=== PATIENT | male | born 1950 | race Two or more races ===

== ENCOUNTER → 2024-06-27 | Outpatient (CLI) | payer MEDICARE, MEDICAID, SELFPAY ==
--- NOTE | 2024-06-27 09:00 | XR_ITS ---
Examination: Abdomen AP single view Technique: AP portable supine abdomen, single view Exam date and time: June 27, 2024 0917 hours INDICATIONS: Fecal impaction diagnosis FINDINGS: Large amounts of stool in the transverse and descending colon No obstruction IMPRESSION: Large amounts of stool in the colon
== END | disposition home or self-care (01) ==
PROVIDERS: Referring Provider Specialist; Visit Provider Specialist
DX: K59.00 Constipation, unspecified (principal)
CPT/HCPCS: 74018

== ENCOUNTER → 2024-06-28 | Outpatient (CLI) | payer MEDICARE, MEDICAID, SELFPAY ==
--- NOTE | 2024-06-28 09:15 | XR_ITS ---
Examination: Gastrografin enema KUB Fluoroscopy 14 spot fluoroscopic films of the colon Exam date and time: June 28, 2024 0907 hours INDICATIONS: Diagnosis impaction TECHNIQUE AND FINDINGS: Oyster Picker AP supine abdomen demonstrates significant stool throughout the colon Colon is filled under fluoroscopic guidance to the cecum No constricting colonic lesion No colonic diverticulosis No significant evacuation on the postevacuation film No rectal or other ulcerations IMPRESSION: No colonic lesion noted
== END | disposition home or self-care (01) ==
PROVIDERS: PCP Specialist; Referring Provider Specialist; Visit Provider Specialist
DX: K59.09 Other constipation (principal)
CPT/HCPCS: 74270; Q9963

== ENCOUNTER 2024-09-21 09:23 | Outpatient (AMB) | payer MEDICARE, MEDICAID, SELFPAY ==
--- NOTE | 2024-09-21 09:24 | PD.RESCLINIC ---
Vital Signs 09/21/24 09:37 Height 1.68 m Height Method Stated Weight 60.895 kg Weight Measurement Method Standing Scale BMI 21.5 BP 102/62 Blood Pressure Source Automatic Cuff Blood Pressure Location Right Upper Arm Position Sitting Respiration 18 Pulse 82 Pulse Source Monitor Temp 98.3 F Temp Source Temporal Artery Scan Pulse Oximetry (%) 97 Oxygen Delivery Method Room Air Allergies/Meds Allergies & Medications Allergies No Known Allergies Allergy (Verified 09/21/24 09:38) Medication Reconciliation lancets 23 gauge (Accu-Chek Safe-T-Pro) #200 ea 10/27/23 [Rx Confirmed 09/21/24] metformin 500 mg tablet 500 mg PO BIDWMEAL #60 tabs 10/27/23 [Rx Confirmed 09/21/24] pen needle, diabetic 29 gauge x 1/2 (1st Tier Unifine Pentips Plus) #2 ea 10/27/23 [Rx Confirmed 09/21/24] docusate sodium 100 mg capsule 100 mg PO QDAY PRN constipation #30 caps 12/14/23 [Rx Confirmed 09/21/24] empagliflozin 10 mg tablet (Jardiance) 10 mg PO QAM Diabetes #30 tabs 12/14/23 [Rx Confirmed 09/21/24] gabapentin 300 mg capsule 300 mg PO HS neuropathy 30 days #30 caps 12/14/23 [Rx Confirmed 09/21/24] sitagliptin phosphate 100 mg tablet (Januvia) 100 mg PO QDAY #30 tabs 12/14/23 [Rx Confirmed 09/21/24] MA Intake Visit Data Collection New Patient or Established: Established Patient (seen at [facility] within 3 years) Seen by Clinical Staff ONLY (RN/MA): No Pain Present Currently: No Pain scale:: 0 Pain Scale Used: Pulido-Winston/Numerical Ball Machine Operator Required: No PCP or OBGYN visit in last 3 months: No Hx Now: No Do You Feel Safe at Home: Yes Authorities Contacted: N/A Smoking Status Smoking Status: Current every day smoker Cessation Counseling Provided: ANA was advised that quitting smoking is the single most important factor to protect the health of themselves and their family. Discussed the benefits of quitting smoking with patient. Encouraged patient to quit smoking and provided Cessation assistance materials and resources. Tobacco Use: Cigarette Years smoked: 50 Are you interested in quitting?: No Immunization / Flu Flu Vaccine in the Last 12 Months: No Flu Vaccine Exclusion Criteria: Refused by Patient Past Medical History Past Medical History NEUROLOGIC: Negative Neurological Disorders, Cerebrovascular Accident, Transient Ischemic Attacks (TIA), Dementia, Alzheimer's Disease, Parkinson's Disease, Brain Tumor, Meningitis, Seizures, Epilepsy, Multiple Sclerosis, Cerebral Palsy, Amyotrophic Lateral Sclerosis (ALS/Clarisa Gehrig's), Guillain-Pioneer Syndrome, Spina Bifida, Paralysis, Peripheral Neuropathy, Jara's Palsy, Subdural Hematoma, Migraine, Head Trauma, Spinal Cord Injury or Traumatic Brain Injury CARDIAC: Positive Cardiac Disorders, Peripheral Vascular Disease and Hypotension; Negative Myocardial Infarction, Cardiac Arrhythmia, Atrial Fibrillation, Angina, Heart Murmur, Coronary Artery Disease, Atherosclerotic Heart Disease, Hypercholesterolemia, Aneurysm, Congestive Heart Failure, Congenital Heart Disease, Valvular Heart Disease, Rheumatic Fever, Cardiomyopathy, Edema, Pericarditis, Cellulitis, Deep Vein Thrombosis, Hypertension or Varicose Veins RESPIRATORY: Negative Chronic Obstructive Pulmonary Disease (COPD), Asthma, Bronchitis, Emphysema, Pneumonia, Pulmonary Fibrosis, Cystic Fibrosis, Tuberculosis, Pulmonary Embolism, Pulmonary Edema or Sleep Apnea GASTROINTESTINAL: Negative Gastrointestinal Disorders, Hepatitis, Cirrhosis, Pancreatitis, Celiac Disease, Gall Bladder Disease, Gastrointestinal Bleed, Esophageal Varices, Poon's Esophagus, Colitis, Ulcerative Colitis, Diverticulitis, Diverticulosis, Ulcer, Colorectal Cancer, Irritable Bowel, Crohn's Disease, Obstructive Bowel, Hiatal Hernia, Hemorrhoids, Gastroesophageal Reflux Disease or Obesity GENITOURINARY: Positive Renal Disease; Negative Genitourinary Disorders, Kidney Stones, Polycystic Kidney Disease, Neurogenic Bladder, Inguinal Hernia, Dialysis, Prostate Cancer or Benign Prostatic Hyperplasia REPRODUCTIVE: Negative Breast Cancer (n/a), Fibroids, Genital Herpes, Gonorrhea, Syphilis or Testicular Cancer MUSCULOSKELETAL: Negative Muscular Dystrophy, Myasthenia Gravis, Marfan's Syndrome, Bone Cancer, Arthritis, Rheumatoid Arthritis, Osteoporosis, Degenerative Disk Disease, Gout, Scoliosis, Carpal Tunnel Syndrome, Fibromyalgia, Fractures, Degenerative Joint Disease, Osteomyelitis or Poliovirus ENT: Negative Cataracts, Glaucoma, Blind, Retinal Detachment, Macular Degeneration, Ear Infection, Deafness, Head Trauma or Eye Prosthesis ENDOCRINE: Positive Endocrine Disorders and Diabetes Mellitus Type 2; Negative Diabetes Mellitus Type 1, Hypoglycemia, [employer] [employer]'s Syndrome, [place]'s Disease, Hyperthyroidism, Hypothyroidism, Parathyroid Disease, Pituitary Disease, Systemic Lupus Erythematosus, Syndrome of Inappropriate Antidiuretic Hormone (SIADH), Adrenal Disease or Graves' Disease HEMATOLOGIC: Negative Blood Disorders, Anemia, Leukemia, Hemophilia, Thalassemia, Sickle Cell Disease or Clotting Problems PSYCHO/SOCIAL: Negative Psychiatric Problems, Schizophrenia, Recreational Drug Use, Bipolar Disorder, Depression, Anxiety, Behavior Problems, Self-Mutilation, Attention Deficit Disorder, Attention Deficit Hyperactivity Disorder, Depression, Post Traumatic Stress Disorder or Eating Disorder OTHER HISTORY: Negative Hospitalization, Down Syndrome, Autism, Developmental Delay, Shingles, Falls, Blood Transfusions, Blood Transfusion Reaction, Anesthesia Reactions, Organ Transplant, Chemotherapy, Radiation Therapy, Hyperbaric Therapy, MRSA, VRSA, Vancomycin-Resistant Enterococci, Human Immunodeficiency Virus (HIV), Chicken Pox, Measles, Mumps, Rubella ([place] Measles), Pertussis, Clostridium Difficile, Cancer, Breast Cancer (n/a), Colorectal Cancer, Lung Cancer, Prostate Cancer or Testicular Cancer Family History FAMILY HISTORY: Negative Family Psychiatric Problems, Family Respiratory Disorders, Family Cardiac Disorders, Family Gastrointestinal Problems, Family Cancer, Family Surgery or Family Anesthesia Reaction Surgical History SURGICAL: Negative Cardiac Surgery, Open Heart Surgery, Coronary Artery Bypass Graft, Valve Replacement, Vascular Surgery, Coronary Stent, Cardiac Catheterization, Pacemaker, Angiogram, Auto Implanted Cardiovert Defib, Carotid Endarterectomy, Endocrine Surgery, Thyroidectomy, Ear Surgery, Tympanostomy Tube, Eye Surgery, Nose Surgery, Oral Surgery, Tonsillectomy, Adenoidectomy, Cochlear Implant, Corneal Transplant, Throat Surgery, Abdominal Surgery, Tracheostomy, Gastric Bypass Surgery, Gastrostomy, Bowel Surgery, Nephrectomy, Transurethral Resection, Joint Replacement, Amputation, Open Reduction Internal Fixation, Arthroscopy, Neurologic Surgery, Mastectomy, Lumpectomy, Hysterectomy, Tubal Ligation, Section, Vasectomy or Organ Transplant Social History SMOKING STATUS: Smoking status: Current every day smoker PACK YEARS: Pack-Years: 60 ALCOHOL: Alcohol Intake: Never HOUSING: Housing: House LIVES WITH: Lives With: Alone Patient Portal Yamini Social History Living Situation History Housing: House Tobacco History Smoking Status: Current every day smoker Packs per Day: 1 Pack-Years: 60 Alcohol History Alcohol Intake: Never Domestic Abuse History Do You Feel Safe at Home: Yes Review of Systems Report any current symptoms Only answer those that you have currently: Past Medical History Past Medical History Have you ever been diagnosed with any of the following: Neurological Problems Cerebrovascular Accident (CVA): No Transient Ischemic Attacks (TIA): No Dementia: No Alzheimer's Disease: No Parkinson's Disease: No Brain Tumor: No Meningitis: No Seizures: No Epilepsy: No Multiple Sclerosis: No Cerebral Palsy: No Amyotrophic Lateral Sclerosis (ALS/Clarisa Gehrig's): No Guillain-Pioneer Syndrome: No Spina Bifida: No Paralysis: No Peripheral Neuropathy: No Jara's Palsy: No Subdural Hematoma: No Migraine: No Head Trauma: No Spinal Cord Injury: No Traumatic Brain Injury: No Cardiology Problems Myocardial Infarction: No Cardiac Arrhythmia: No Atrial Fibrillation: No Angina: No Heart Murmur: No Coronary Artery Disease: No Atherosclerotic Heart Disease: No Peripheral Vascular Disease: Yes Hypercholesterolemia: No Aneurysm: No Congestive Heart Failure: No Congenital Heart Disease: No Valvular Heart Disease: No Rheumatic Fever: No Cardiomyopathy: No Edema: No Pericarditis: No Cellulitis: No Deep Vein Thrombosis: No Hypertension: No Hypotension: Yes Varicose Veins: No Respiratory Problems Chronic Obstructive Pulmonary Disease (COPD): No Asthma: No Bronchitis: No Emphysema: No Pneumonia: No Pulmonary Fibrosis: No Tuberculosis: No Pulmonary Embolism: No Pulmonary Edema: No Sleep Apnea: No Stomache/Intestinal Problems Hepatitis: No Cirrhosis: No Pancreatitis: No Celiac Disease: No Gall Bladder Disease: No Gastrointestinal Bleed: No Esophageal Varices: No Poon's Esophagus: No Colitis: No Ulcerative Colitis: No Diverticulitis: No Diverticulosis: No Ulcer: No Colorectal Cancer: No Irritable Bowel: No Crohn's Disease: No Obstructive Bowel: No Hiatal Hernia: No Hemorrhoids: No Gastroesophageal Reflux Disease: No Obesity: No Genital/Urinary Problems Renal Disease: Yes Kidney Stones: No Polycystic Kidney Disease: No Neurogenic Bladder: No Inguinal Hernia: No Dialysis: No Prostate Cancer: No Benign Prostatic Hyperplasia: No Reproductive Problems Breast Cancer: No (n/a) Fibroids: No Genital Herpes: No Gonorrhea: No Syphilis: No Testicular Cancer: No Musculoskeletal Problems Muscular Dystrophy: No Myasthenia Gravis: No Marfan's Syndrome: No Bone Cancer: No Arthritis: No Rheumatoid Arthritis: No Osteoporosis: No Degenerative Disk Disease: No Gout: No Scoliosis: No Carpal Tunnel Syndrome: No Fibromyalgia: No Fractures: No Degenerative Joint Disease: No Osteomyelitis: No Poliovirus: No Head,Eye,Nose,Throat Problems Cataracts: No Glaucoma: No Blind: No Retinal Detachment: No Macular Degeneration: No Chronic Ear Infections: No Deafness: No Eye Prosthesis: No Endocrine Problems Diabetes Mellitus Type 1: No Diabetes Mellitus Type 2: Yes Hypoglycemia: No [employer] [employer]'s Syndrome: No Adams's Disease: No Hyperthyroidism: No Hypothyroidism: No Parathyroid Disease: No Pituitary Disease: No Systemic Lupus Erythematosus: No Syndrome of Inappropriate Antidiuretic Hormone: No Adrenal Disease: No Graves' Disease: No Blood Problems Anemia: No Leukemia: No Hemophilia: No Thalassemia: No Sickle Cell Disease: No Clotting Problems: No Psychologic Problems Schizophrenia: No Recreational Drug Use: No Bipolar Disorder: No Depression: No Anxiety: No Behavior Problems: No Self-Mutilation: No Attention Deficit Disorder: No Attention Deficit Hyperactivity Disorder: No Depression: No Post Traumatic Stress Disorder: No Eating Disorder: No Other Problems Hospitalization: No Down Syndrome: No Autism: No Developmental Delay: No Shingles: No Falls: No Blood Transfusions: No Blood Transfusion Reaction: No Anesthesia Reactions: No Organ Transplant: No Chemotherapy: No Radiation Therapy: No Hyperbaric Therapy: No MRSA: No VRSA: No Vancomycin-Resistant Enterococci: No Human Immunodeficiency Virus (HIV): No Chicken Pox: No Measles: No Mumps: No Rubella ([place]an Measles): No Pertussis: No Clostridium Difficile: No Cancer: No Lung Cancer: No Surgical History Carotid Endarterectomy: No Coronary Artery Bypass Graft: No Valve Replacement: No Pacemaker: No Thyroidectomy: No History of Present Illness HPI Narrative Patient is a 73 year old male with history of peripheral neuropathy, T2 IDDM, and recurrent right foot soft tissue infections, who presented to the ED with right second toe gangrene, was admitted for further evaluation and management of right second toe gangrene recently and was discharged for vascular referral. Patient has seen Dr. Brennan the vascular surgeon and he placed a stent for the patient according to his daughter Tamia. She also informed that he has scheduled an appointment with the general surgeon Dr. Guzman on Wednesday, 01 September 2023. She informed that there is a home health nurse that comes every day to check on his wound and she informed them that the wound looks clean and they have to wait just for the appointment, She also mentioned that the patient is taking his meds as instructed. I informed the daughter Tamia to book an appointment follow-up with me after her appointment with Dr. Guzman to further coordinate patient's care if surgical intervention was required. 10/27/23 Phone visit, completed with the help of patient's son in law , Chadd, apparently pt's daughter Tamia is no longer with them and Chadd will be taking over care and wishes to be the person to contact in case of emergencies, Questions and concerns were answered, primary reason for consult was medication refills, and that patient wasnt sure what medication to continue, he had a recent amputation follwoing gangrene and discharged from hospital on Jardiance and metformin, which are refilled. reported good compliance and tolerace to medications. of note, i did notice that the pt had recently had vascular surgery appointment with stent placement by dr. Brennan, but the patient is unsure if he needs to followup or needs to take any medications. I urged them to reach out to Dr Brennan's office for followup and confirm if he was precribed any medications pretaining to peripheral vascular disease as to prevent future gangrenes. 02/09/24: Patient here today regarding b/l muscle wasting of snuff box. Patient is IDDM2 with complications of multiple amputations. Currently patient on fast acting insuline with meals. Last A1c 7.9, patient underwent amputation of right below knee by Dr. Guzman on 09/09/23. Since then patient has been having home wound care every x2 weeks. Physical exam of hands show muscle wasting of snuff box, strength intact b/l. No other concerns today. Encouraged patient to perform eligibility analyst exercise. 09/21/2024: Patient seen in office today with chief complaint of increased pain at site of right BKA associated with prosthetic use. Patient states he has had pain for some time , however has been getting progressively worse, significantly associated with walking with prosthetic. On exam, patient noted tenderness to palpation on anterior hinojosa, had area of thickened skin without breakdown at site of BKA. Will reach out to hospital regarding who provided prosthetic, plan for evaluation for refitting. Water Softener Installer strength assessed, patient reports subjective improvement with hand exercises. Review of Systems Review of Systems Systems Reviewed: All systems reviewed, normal except as documented Objective/Exam Narrative Physical exam: Constitutional: well-developed, well-nourished, in no acute distress, lying in bed HEENT: NCAT, EOMI, reactive round pupils b/l, patent nares b/l, moist mucous membranes Lung: CTAB, no wheezing, no rhonchi Heart: Regular S1S2, no murmurs, gallops, or rubs Abdomen: Soft, non-distended, non-tender, bowel sounds present throughout Extremities: Right below knee amputation with prosthetic noted. Tenderness to anterior right hinojosa, thickened skin at site of BKA. Neurologic: No focal sensory or motor deficits noted, AOx3, appropriate affect Skin: Warm, dry, no lesions or rashes noted NETWORK CONTROL OPERATOR: Right hand 60, Thumb 13, 1st 10, 2nd 10, 3rd 9, 4th 2. Left hand 50, thumb 10, 1st 10, 2nd 10, 3rd 8, 4th 2. Assessment & Plan Diagnosis / Problem List (1) Other complications of amputation stump: Status: Acute Assessment & Plan: Patient seen for complaint of pain at site of right BKA. Appears to be associated with prosthetic use, tenderness noted at anterior hinojosa. Likely due to poor fit, possibly secondary to muscular atrophy. Surgery performed by Dr. Guzman at [facility]. Plan: - Follow-up with [facility] regarding who provide the prosthetic - Will reach out to see if the company to provide the prosthetic can evaluate for potential refit - Use Tylenol as needed for pain Additional Assessment Plan of care discussed with Dr. Perez. Khanh Tavera MD PGY-1 Advanced Care Planning Advance care planning discussed with:: patient and child Office Procedures [facility] Level of Care Nursing/Assessment Patient Status: Established Patient Nursing Assessment/Reassessment: Medication Reconciliation, Update PMH in EMR and Vital Signs Coordination of Care: Complex Care and Chronic Disease 1-5, Consent,records obtained, informed consent, Education Simp Pt/Fam and Staff clarify orders Established Patient Charge Established Patient Point Assignment: 85 Established Patient Point Charge: EP Level 3 (80-115)
[2024-09-21 09:37] VITALS: BP 102/62; PULSE 82; RESP 18; TEMP 36.8; O2SAT 97; BMI 21.5
== END 2024-09-21 10:10 | disposition home or self-care (01) ==
LOC: HODAHC 09:23
PROVIDERS: PCP Student in an Organized Health Care Education/Training Program; Referring Provider Student in an Organized Health Care Education/Training Program; Supervising Provider Internal Medicine; Visit Provider Student in an Organized Health Care Education/Training Program
DX: T85.848A Pain due to other internal prosthetic devices, implants and grafts, initial encounter (principal); G89.18 Other acute postprocedural pain; Y84.8 Other medical procedures as the cause of abnormal reaction of the patient, or of later complication, without mention of misadventure at the time of the procedure
CPT/HCPCS: 99213; G0463

== ENCOUNTER 2024-10-17 13:44 | Outpatient (AMB) | payer MEDICARE, MEDICAID, SELFPAY | END 2024-10-17 14:55 | disposition home or self-care (01) | PROVIDERS: Supervising Provider Internal Medicine; Visit Provider Student in an Organized Health Care Education/Training Program | DX: T84.84XA Pain due to internal orthopedic prosthetic devices, implants and grafts, initial encounter (principal); Y79.2 Prosthetic and other implants, materials and accessory orthopedic devices associated with adverse incidents; Y84.8 Other medical procedures as the cause of abnormal reaction of the patient, or of later complication, without mention of misadventure at the time of the procedure | CPT/HCPCS: 99213; G0463 ==